=== PATIENT | male | born 1965 | race Caucasian/White ===

== ENCOUNTER → 2016-10-01 | Outpatient (CLI) | payer BC, OTHER, SELFPAY ==
[~2016-10-01] MED LIST: LIDOCAINE 1% MDV 20ML VIAL As Ordered ONE
--- NOTE | 2016-10-01 16:00 | REP ---
ULTRASOUND GUIDED LIVER BIOPSY: The procedure was performed under the direct supervision of Dr. Dodd. The risks and benefits of the procedure were explained to the patient and informed consent was obtained. The right lobe of the liver was localized using ultrasound guidance. The skin was prepped and draped in a sterile fashion. 1% Xylocaine was used as a local anesthetic. Using ultrasound guidance, a 19/20-gauge coaxial needle biopsy system was inserted and advanced into the liver. Seven core biopsy samples were obtained and sent to the lab. The patient tolerated the procedure well and there were no immediate complications. After the appropriate amount of monitored convalescence the patient was discharged from the department. Reviewed by MADI Reardon 10/02/2016 04:39 PEdited and Signed by Saul Dodd MD 10/02/2016 04:56 P
== END ==
LOC: M RADPRO 08:05
PROVIDERS: ATTEND Family Medicine
DX: E83.119 Hemochromatosis, unspecified (principal)